=== PATIENT | female | born 1955 | race Caucasian/White ===

== ENCOUNTER 2019-11-10 16:18 | Inpatient (IN) | payer MEDICARE ==
[~2019-11-10] VITALS: Ht 167.6 cm; Wt 53.5 kg
--- NOTE | 2019-11-10 17:18 | NUR ---
PT DIFFICULT STICK AND VERY DRY MUCOUS MEMBRANES. PT HAS NOT BEEN SEE BY MD. PROVIDED WATER. TECH AT BEDSIDE WITH ULTRASOUND TO ATTEMPT TO ESTABLISH IV AND DRAW BLOOD.
[2019-11-10 17:49] LABS: BASOPHILS # (AUTO) 0.03 x10^3/uL (0-0.1); BASOPHILS % (AUTO) 0 % (0-1); EOSINOPHILS # (AUTO) 0.19 x10^3/uL (0-0.4); EOSINOPHILS % (AUTO) 2 % (1-7); LYMPHOCYTES # (AUTO) 2.97 x10^3/uL (1-3.4); LYMPHOCYTES % (AUTO) 27 % (22-44); MD NO; MEAN CORPUSCULAR HEMOGLOBIN 29.7 pg (27.0-34.8); MEAN CORPUSCULAR HGB CONC 33.8 g/dL (32.4-35.8); MEAN CORPUSCULAR VOLUME 87.8 fL (80-100); MEAN PLATELET VOLUME 8.5 fL (7.4-10.4); MONOCYTES % (AUTO) 8 % (2-9); NEUTROPHILS # (AUTO) 6.83 x10^3/uL (1.8-6.8); NEUTROPHILS % (AUTO) 63 % (42-75); PLATELET COUNT 164 x10^3/uL (130-400); RED BLOOD COUNT 5.33 x10^6/uL (3.82-5.3); RED CELL DISTRIBUTION WIDTH 15.3 % (9.6-15.2)
[2019-11-10 17:56] LABS: ALANINE AMINOTRANSFERASE 27 U/L (12-78); ALBUMIN 3.3 g/dL (3.4-5.0); ANION GAP 8 mmol/L (5-15); CALCIUM 8.8 mg/dL (8.5-10.1); CHLORIDE 108 mmol/L (98-107); CREATININE 0.82 mg/dL (0.55-1.02); SALICYLATE LEVEL < 1.7 mg/dL (2.8-20.0)
[2019-11-10 17:57] LABS: ALKALINE PHOSPHATASE 91 U/L (45-117); BILIRUBIN,TOTAL 1.5 mg/dL (0.2-1.0); TOTAL PROTEIN 7.4 g/dL (6.4-8.2)
[2019-11-10] MEDS ORDERED: NALOXONE 0.4 MG/ML, 1ML IVPush ONE (18:00)
[2019-11-10] MEDS ORDERED: NALOXONE 0.4 MG/ML, 1ML ONE (18:01)
--- NOTE | 2019-11-10 18:03 | NUR ---
PT GIVEN NARCAN PER ORDERS. PT YAWNED A FEW TIMES AND RR INCREASED. NOT AGITATED BUT UNABLE TO ANSWER QUESTIONS. JUST WANTS TO KNOW WHEN SHE CAN GO HOME
--- NOTE | 2019-11-10 18:27 | NUR ---
SPOKE WITH CORTNEY [phone]. STATES PT WAS FINE WHEN HE TOOK HER HOME FROM [place] YESTERDAY BUT BY END OF THE NIGHT SHE WAS ACTING DELIERIOUS. A [employer] SHOWED UP THIS AFTERNOON TO DO A WELLNESS CHECK AND ULTIMATELY DECISION MADE TO TRANSPORT PT TO HOSPITAL. STATES HE FOUND SOME BLUE PILLS AFTER SHE LEFT THAT HE DOES NOT KNOW WHAT OR WHERE THEY CAME FROM AND UNSURE IF HIS HAD BEEN TAKING THEM. ID OF PT VERIFIED AND STATES HER FIRST NAME IS [id number], THAT THE PARAMEDICS GOT IT INCORRECT. LAST NAME AND CORRECT PER .
--- NOTE | 2019-11-10 18:56 | NUR ---
Pt bedside report from Libby rn. This rn to asssume care of pt. Pt was incontinent of bowel and changed by libby rn and placed on fresh chux and sheet. Libby rn at bedside for straight cath. Pt still at baseline mentation from admit to ed per rn report.
[2019-11-10 19:30] LABS: AMPHETAMINE SCREEN, URINE Negative (Negative); BARBITURATE SCREEN, URINE Negative (Negative); BENZODIAZEPINE SCREEN, URINE Positive (Negative); CANNABINOID SCREEN, URINE Negative (Negative); COCAINE SCREEN, URINE Negative (Negative); METHADONE SCREEN, URINE Positive (Negative); OPIATE SCREEN, URINE Positive (Negative)
--- NOTE | 2019-11-10 19:50 | NUR ---
Pt resting comfortably on gurney. Pt easily roused, but not able to answer any of orientation questions. All advertising copy writer and strengths still equal bilateral. Pt utilizing grunting for signs of discomfort. Awaiting adm order.
--- NOTE | 2019-11-10 19:55 | NUR ---
Md informed of pt condition and lack of improving mental status. Md states to have pt tbadm. No new orders at this time.
[2019-11-10] MEDS ORDERED: POLYETHYLENE GLYCOL 17 GM PACKET PO PRN (20:30)
[2019-11-10] MEDS ORDERED: hydrALAzine 20 MG/ML, 1ML IVPush PRN (20:30)
[2019-11-10] MEDS ORDERED: BISACODYL 10 MG SUPP PR PRN (20:30)
[2019-11-10] MEDS ORDERED: ONDANSETRON 2MG/ML, 2ML IVPush PRN (20:30)
--- NOTE | 2019-11-10 21:00 | NUR ---
Pt to ct and then to be tx upstairs.
[2019-11-10 23:05] VITALS: BP 164/88
[2019-11-11 00:02] LABS: MICROSCOPIC NOT IND
[2019-11-11 00:12] LABS: CULTURE INDICATED? NO
[2019-11-11] MEDS: SODIUM CHLORIDE 0.9% 1,000 ML IV SCH ×2 (00:20→09:21)
[2019-11-11 01:25] VITALS: BP 152/80
[2019-11-11 09:03] LABS: BASOPHILS # (AUTO) 0.02 x10^3/uL (0-0.1); BASOPHILS % (AUTO) 0 % (0-1); EOSINOPHILS # (AUTO) 0.06 x10^3/uL (0-0.4); EOSINOPHILS % (AUTO) 1 % (1-7); LYMPHOCYTES # (AUTO) 3.04 x10^3/uL (1-3.4); LYMPHOCYTES % (AUTO) 28 % (22-44); MD NO; MEAN CORPUSCULAR HEMOGLOBIN 29.3 pg (27.0-34.8); MEAN CORPUSCULAR HGB CONC 33.4 g/dL (32.4-35.8); MEAN CORPUSCULAR VOLUME 87.9 fL (80-100); MEAN PLATELET VOLUME 8.2 fL (7.4-10.4); MONOCYTES # (AUTO) 0.82 x10^3/uL (0.2-0.8); MONOCYTES % (AUTO) 8 % (2-9); NEUTROPHILS # (AUTO) 6.91 x10^3/uL (1.8-6.8); NEUTROPHILS % (AUTO) 64 % (42-75); PLATELET COUNT 164 x10^3/uL (130-400); RED BLOOD COUNT 5.63 x10^6/uL (3.82-5.3); RED CELL DISTRIBUTION WIDTH 15.3 % (9.6-15.2)
[2019-11-11 09:07] VITALS: BP 156/94
[2019-11-11 09:08] LABS: ANION GAP 7 mmol/L (5-15); CALCIUM 8.7 mg/dL (8.5-10.1); CHLORIDE 111 mmol/L (98-107); CREATININE 0.67 mg/dL (0.55-1.02)
[2019-11-11] MEDS: SENNA/DOCUSATE TABLET PO SCH (09:21)
[2019-11-11] MEDS ORDERED: LOSA100T14 PO (10:31)
[2019-11-11] MEDS ORDERED: AMLO5TAB10 PO (10:31)
[2019-11-11] MEDS: LOSARTAN 100 MG TAB PO SCH (11:14)
[2019-11-11] MEDS: AMLODIPINE 5 MG TABLET PO SCH (11:14)
[2019-11-11 13:58] VITALS: BP 158/88
[2019-11-11] MEDS: METHADONE 10 MG TABLET PO SCH ×2 (15:49→20:21)
[2019-11-11] MEDS ORDERED: POTASSIUM CHLORIDE 40 MEQ in SODIUM CHLORIDE 0.9% 500 ML IV ONE (18:00)
[2019-11-11] MEDS ORDERED: hydrALAzine 20 MG/ML, 1ML IV PRN (18:00)
[2019-11-11] MEDS ORDERED: SODIUM CHLORIDE 0.9% 1,000 ML IV SCH (20:05)
[2019-11-11 20:14] VITALS: BP 163/87
[2019-11-12 00:13] VITALS: BP 167/91
[2019-11-12 07:10] LABS: ALBUMIN 2.8 g/dL (3.4-5.0); ANION GAP 8 mmol/L (5-15); CALCIUM 7.9 mg/dL (8.5-10.1); CHLORIDE 110 mmol/L (98-107)
[2019-11-12 07:15] LABS: ALANINE AMINOTRANSFERASE 28 U/L (12-78); ALKALINE PHOSPHATASE 74 U/L (45-117); BILIRUBIN,TOTAL 1.5 mg/dL (0.2-1.0); CREATININE 0.59 mg/dL (0.55-1.02); TOTAL PROTEIN 6.4 g/dL (6.4-8.2)
[2019-11-12 09:29] VITALS: BP 162/89
[2019-11-12] MEDS: SENNA/DOCUSATE TABLET PO SCH (09:31)
[2019-11-12] MEDS: METHADONE 10 MG TABLET PO SCH ×3 (09:31→20:08)
[2019-11-12] MEDS: AMLODIPINE 5 MG TABLET PO SCH ×2 (09:31→18:51)
[2019-11-12] MEDS: LOSARTAN 100 MG TAB PO SCH (09:31)
[2019-11-12 15:16] VITALS: BP 165/98
[2019-11-12 18:45] VITALS: BP 167/95
[2019-11-12] MEDS: PROPRANOLOL 10 MG TABLET PO SCH ×2 (18:52→22:07)
[2019-11-13 00:34] VITALS: BP 155/87
[2019-11-13] MEDS: PROPRANOLOL 10 MG TABLET PO SCH ×3 (05:25→21:47)
[2019-11-13 08:13] VITALS: BP 160/91
[2019-11-13] MEDS: METHADONE 10 MG TABLET PO SCH ×3 (09:08→21:47)
[2019-11-13] MEDS: LOSARTAN 100 MG TAB PO SCH (09:08)
[2019-11-13] MEDS: SENNA/DOCUSATE TABLET PO SCH (09:09)
[2019-11-13] MEDS: AMLODIPINE 5 MG TABLET PO SCH ×2 (09:09→21:47)
[2019-11-13 13:09] VITALS: BP 138/91
[2019-11-13 15:01] VITALS: BP 153/80
[2019-11-13] MEDS ORDERED: MAGNESIUM SULFATE/D5W 100 ML IV ONE (18:30)
[2019-11-13] MEDS ORDERED: POTASSIUM PHOSPHATE 44 MEQ in SODIUM CHLORIDE 0.9% 500 ML IV ONE (20:00)
[2019-11-13 20:02] VITALS: BP_SYST 162; BP_SYST 171; BP_DIAS 73; BP_DIAS 74; BP_DIAS 90
[2019-11-14 02:15] VITALS: BP 152/90
[2019-11-14] MEDS: PROPRANOLOL 10 MG TABLET PO SCH (06:01)
[2019-11-14 06:09] LABS: BASOPHILS # (AUTO) 0.02 x10^3/uL (0-0.1); BASOPHILS % (AUTO) 0 % (0-1); EOSINOPHILS # (AUTO) 0.14 x10^3/uL (0-0.4); EOSINOPHILS % (AUTO) 2 % (1-7); LYMPHOCYTES # (AUTO) 2.59 x10^3/uL (1-3.4); LYMPHOCYTES % (AUTO) 37 % (22-44); MD NO; MEAN CORPUSCULAR HEMOGLOBIN 29.6 pg (27.0-34.8); MEAN CORPUSCULAR HGB CONC 34.1 g/dL (32.4-35.8); MEAN PLATELET VOLUME 8.6 fL (7.4-10.4); MONOCYTES # (AUTO) 0.72 x10^3/uL (0.2-0.8); MONOCYTES % (AUTO) 10 % (2-9); NEUTROPHILS # (AUTO) 3.51 x10^3/uL (1.8-6.8); NEUTROPHILS % (AUTO) 50 % (42-75); PLATELET COUNT 169 x10^3/uL (130-400); RED BLOOD COUNT 5.02 x10^6/uL (3.82-5.3); RED CELL DISTRIBUTION WIDTH 15.4 % (9.6-15.2)
[2019-11-14 06:21] LABS: ALANINE AMINOTRANSFERASE 24 U/L (12-78); ALBUMIN 2.7 g/dL (3.4-5.0); ANION GAP 8 mmol/L (5-15); CALCIUM 8.1 mg/dL (8.5-10.1); CHLORIDE 112 mmol/L (98-107); CREATININE 0.69 mg/dL (0.55-1.02)
[2019-11-14 06:23] LABS: ALKALINE PHOSPHATASE 88 U/L (45-117); BILIRUBIN,TOTAL 1.1 mg/dL (0.2-1.0); TOTAL PROTEIN 6.4 g/dL (6.4-8.2)
[2019-11-14 06:48] VITALS: BP 162/82
[2019-11-14] MEDS: LOSARTAN 100 MG TAB PO SCH (09:18)
[2019-11-14] MEDS: METHADONE 10 MG TABLET PO SCH (09:18)
[2019-11-14] MEDS: SENNA/DOCUSATE TABLET PO SCH (09:18)
[2019-11-14] MEDS: AMLODIPINE 5 MG TABLET PO SCH (11:34)
[2019-11-14 11:35] VITALS: BP 155/89
[2019-11-14 12:43] VITALS: BP 134/77
== END 2019-11-14 15:00 | disposition left against medical advice (07) | DRG 92 ==
LOC: ED 17:08 → EDIP 20:05 → 4WST 21:31
PROVIDERS: ADMIT Internal Medicine; ATTEND Family Medicine
DX: G92 Toxic encephalopathy (principal); S22.42XA Multiple fractures of ribs, left side, initial encounter for closed fracture; I16.0 Hypertensive urgency; E83.39 Other disorders of phosphorus metabolism; E87.6 Hypokalemia; Z78.1 Physical restraint status; Z88.0 Allergy status to penicillin; R33.9 Retention of urine, unspecified; Y92.238 Other place in hospital as the place of occurrence of the external cause; Z53.29 Procedure and treatment not carried out because of patient's decision for other reasons; W18.39XA Other fall on same level, initial encounter; Y93.89 Activity, other specified; Y92.098 Other place in other non-institutional residence as the place of occurrence of the external cause; Y99.8 Other external cause status; T42.4X5A Adverse effect of benzodiazepines, initial encounter
CPT/HCPCS: 36415; 70450; 80048; 80053; 80307; 81003; 82140; 83735; 84100; 84443; 85025; 93005; G0378; J2310; J3480; J7030; J7040

== ENCOUNTER 2019-11-15 10:10 | Inpatient (IN) | payer MEDICARE ==
[~2019-11-15] VITALS: Ht 167.6 cm; Wt 53.9 kg
[~2019-11-15 10:10] MED LIST: AMLO5TAB10 PO; LOSA100T14 PO
--- NOTE | 2019-11-15 10:37 | NUR ---
[place]. REPORT RECEIVED FROM EMS. ALTERED MENTAL STATUS PER PT'S AND PT HAD GLF AROUND 9AM TODAY. PT HAS SMALL ABLATION ON RIGHT FACE(UNDER RIGHT ETE). PT'S FOUND UNKNOWN PILLS AFTER PT HAD GLF. PT'S AOX2 HERE. UNKNOWN PILLS ARE IBUPROFEN 800MG PER PHARMACY. RESPS EVEN AND UNLABORED. BP/SPO2 MONITORS IN PLACE. CALL LIGHT WITHIN REACH. EDMD AT BEDSIDE TO EVALUATE AT THIS TIME.
--- NOTE | 2019-11-15 10:39 | NUR ---
PT REFUSED EKG. EDMD NOTIFIED.
[2019-11-15] MEDS ORDERED: HALOPERIDOL 5 MG/ML ONE (10:41)
--- NOTE | 2019-11-15 10:47 | NUR ---
PT MEDICATED PER EMAR. PT TOLERATED WELL. LAB AT BEDSIDE.
--- NOTE | 2019-11-15 10:50 | NUR ---
PER EDMD, PT NEEDS STRAIGHT CATH AFTER MED GIVEN.
--- NOTE | 2019-11-15 10:59 | NUR ---
PT REFUSED STRAIGHT CATH AT THIS TIME. PT STATES "I NEED MY AND HE IS COMING."
[2019-11-15] MEDS ORDERED: HALOPERIDOL 5 MG/ML IM PRN (11:00)
--- NOTE | 2019-11-15 11:02 | NUR ---
PT TO CT AT THIS TIME.
--- NOTE | 2019-11-15 11:14 | NUR ---
PT BACK TO ROOM FROM CT AT THIS TIME.
--- NOTE | 2019-11-15 11:43 | NUR ---
PT IS AGITATED AND YELLING AT STAFF. PT IS AFFRESSIVE AND UNABLE TO STAY IN [facility] [place]. HOUSE PRINCIPAL NOTIFIED. PT WILL MOVE TO ROOM 41 D/T PT AND STAFF SAFETY.
[2019-11-15 11:51] LABS: BASOPHILS # (AUTO) 0.04 x10^3/uL (0-0.1); BASOPHILS % (AUTO) 1 % (0-1); EOSINOPHILS # (AUTO) 0.14 x10^3/uL (0-0.4); EOSINOPHILS % (AUTO) 2 % (1-7); LYMPHOCYTES # (AUTO) 2.01 x10^3/uL (1-3.4); LYMPHOCYTES % (AUTO) 28 % (22-44); MD NO; MEAN CORPUSCULAR HEMOGLOBIN 29.5 pg (27.0-34.8); MEAN CORPUSCULAR HGB CONC 33.6 g/dL (32.4-35.8); MEAN CORPUSCULAR VOLUME 87.9 fL (80-100); MEAN PLATELET VOLUME 8.4 fL (7.4-10.4); MONOCYTES # (AUTO) 0.47 x10^3/uL (0.2-0.8); MONOCYTES % (AUTO) 7 % (2-9); NEUTROPHILS # (AUTO) 4.49 x10^3/uL (1.8-6.8); NEUTROPHILS % (AUTO) 63 % (42-75); PLATELET COUNT 204 x10^3/uL (130-400); RED BLOOD COUNT 4.93 x10^6/uL (3.82-5.3); RED CELL DISTRIBUTION WIDTH 15.7 % (9.6-15.2)
[2019-11-15 12:01] LABS: ANION GAP 6 mmol/L (5-15); CALCIUM 8.6 mg/dL (8.5-10.1); CHLORIDE 114 mmol/L (98-107)
[2019-11-15 12:03] LABS: ALANINE AMINOTRANSFERASE 26 U/L (12-78); ALKALINE PHOSPHATASE 79 U/L (45-117); BILIRUBIN,TOTAL 1.2 mg/dL (0.2-1.0); CREATININE 0.75 mg/dL (0.55-1.02); TOTAL PROTEIN 6.3 g/dL (6.4-8.2)
--- NOTE | 2019-11-15 12:04 | NUR ---
REPORT FROM PAUL
[2019-11-15] MEDS ORDERED: OXYcodone IR 5MG TABLET ONE (12:20)
[2019-11-15] MEDS ORDERED: OXYcodone IR 5MG TABLET PO ONE (12:30)
--- NOTE | 2019-11-15 13:47 | NUR ---
REPORT TO MAYRA. PT READY FOR TRANSFER. US IV PLACE. PT COOPERATIVE. MANY BRUISES AND SKIN TEARS NOTED ON BOTH ARMS
[2019-11-15] MEDS ORDERED: SODIUM CHLORIDE 0.9% 1,000 ML IV SCH (14:13)
[2019-11-15] MEDS ORDERED: POTASSIUM CHLORIDE 40 MEQ in SODIUM CHLORIDE 0.9% 500 ML IV ONE (14:30)
[2019-11-15] MEDS ORDERED: hydrALAzine 20 MG/ML, 1ML IVPush PRN (14:30)
[2019-11-15] MEDS ORDERED: LABETALOL 5MG/ML, 20ML IVPush PRN (14:30)
[2019-11-15] MEDS ORDERED: ONDANSETRON 2MG/ML, 2ML IVPush PRN (14:30)
[2019-11-15] MEDS: ENOXAPARIN 40 MG/0.4 ML SQ SCH (14:33)
[2019-11-15] MEDS: POTASSIUM CHLORIDE 10 MEQ in D5%-0.45% NACL 1,000 ML IV SCH (14:58)
[2019-11-15 16:11] VITALS: BP 137/78
[2019-11-15 16:14] LABS: MICROSCOPIC NOT IND
[2019-11-15 16:25] LABS: AMPHETAMINE SCREEN, URINE Negative (Negative); BARBITURATE SCREEN, URINE Negative (Negative); BENZODIAZEPINE SCREEN, URINE Positive (Negative); CANNABINOID SCREEN, URINE Negative (Negative); COCAINE SCREEN, URINE Negative (Negative); METHADONE SCREEN, URINE Positive (Negative); OPIATE SCREEN, URINE Negative (Negative)
[2019-11-15 16:36] LABS: CULTURE INDICATED? NO
[2019-11-15 19:24] VITALS: BP 136/79
[2019-11-16 01:42] VITALS: BP 166/73
[2019-11-16 07:40] VITALS: BP 177/91
[2019-11-16 08:28] LABS: BASOPHILS # (AUTO) 0.02 x10^3/uL (0-0.1); BASOPHILS % (AUTO) 0 % (0-1); EOSINOPHILS # (AUTO) 0.07 x10^3/uL (0-0.4); EOSINOPHILS % (AUTO) 1 % (1-7); LYMPHOCYTES % (AUTO) 30 % (22-44); MD NO; MEAN CORPUSCULAR HEMOGLOBIN 30.1 pg (27.0-34.8); MEAN CORPUSCULAR HGB CONC 34.1 g/dL (32.4-35.8); MEAN CORPUSCULAR VOLUME 88.3 fL (80-100); MEAN PLATELET VOLUME 8.2 fL (7.4-10.4); MONOCYTES # (AUTO) 0.37 x10^3/uL (0.2-0.8); MONOCYTES % (AUTO) 6 % (2-9); NEUTROPHILS % (AUTO) 63 % (42-75); PLATELET COUNT 211 x10^3/uL (130-400); RED BLOOD COUNT 5.03 x10^6/uL (3.82-5.3); RED CELL DISTRIBUTION WIDTH 15.4 % (9.6-15.2)
[2019-11-16 08:41] LABS: ALBUMIN 3.2 g/dL (3.4-5.0); ANION GAP 8 mmol/L (5-15); CALCIUM 8.5 mg/dL (8.5-10.1); CHLORIDE 114 mmol/L (98-107)
[2019-11-16 08:45] LABS: ALANINE AMINOTRANSFERASE 30 U/L (12-78); ALKALINE PHOSPHATASE 86 U/L (45-117); BILIRUBIN,TOTAL 1.8 mg/dL (0.2-1.0); CREATININE 0.67 mg/dL (0.55-1.02); TOTAL PROTEIN 7.1 g/dL (6.4-8.2)
[2019-11-16] MEDS ORDERED: AMLODIPINE 5 MG TABLET PO SCH (09:00)
[2019-11-16] MEDS: POTASSIUM CHLORIDE 10 MEQ in D5%-0.45% NACL 1,000 ML IV SCH ×2 (09:00→23:21)
[2019-11-16] MEDS: LOSARTAN 100 MG TAB PO SCH (11:15)
[2019-11-16] MEDS: AMLODIPINE 10 MG TAB PO SCH (11:16)
[2019-11-16 13:27] VITALS: BP 161/92
[2019-11-16] MEDS: ENOXAPARIN 40 MG/0.4 ML SQ SCH (16:55)
[2019-11-16] MEDS: ACETAMINOPHEN 325 MG TABLET PO PRN (16:55)
[2019-11-16] MEDS ORDERED: LORazepam 0.5MG TABLET ONE (17:29)
[2019-11-16] MEDS: LORazepam 0.5MG TABLET PO PRN (17:31)
[2019-11-16 19:45] VITALS: BP 155/88
[2019-11-17 00:31] VITALS: BP 160/82
[2019-11-17] MEDS: LORazepam 0.5MG TABLET PO PRN ×2 (02:08→10:40)
[2019-11-17 09:46] VITALS: BP 170/93
[2019-11-17] MEDS: HYDROCHLOROTHIAZIDE 25 MG TABLET PO SCH (10:39)
[2019-11-17] MEDS: LOSARTAN 100 MG TAB PO SCH (10:39)
[2019-11-17] MEDS: AMLODIPINE 10 MG TAB PO SCH (10:39)
[2019-11-17] MEDS: ENOXAPARIN 40 MG/0.4 ML SQ SCH (15:09)
[2019-11-17 18:38] VITALS: BP 155/92
[2019-11-17] MEDS: ACETAMINOPHEN 325 MG TABLET PO PRN (21:57)
[2019-11-18 01:36] VITALS: BP 149/83
[2019-11-18 09:06] VITALS: BP 152/92
[2019-11-18] MEDS: AMLODIPINE 10 MG TAB PO SCH (09:09)
[2019-11-18] MEDS: HYDROCHLOROTHIAZIDE 25 MG TABLET PO SCH (09:09)
[2019-11-18] MEDS: CARVEDILOL 12.5 MG TABLET PO SCH ×2 (09:09→18:26)
[2019-11-18] MEDS: LOSARTAN 100 MG TAB PO SCH (09:09)
[2019-11-18] MEDS ORDERED: LORazepam 2 MG/ML, 1ML IVPush ONE (14:30)
[2019-11-18 14:33] VITALS: BP 149/89
[2019-11-18] MEDS: ENOXAPARIN 40 MG/0.4 ML SQ SCH (14:54)
[2019-11-18 15:27] VITALS: BP 159/77
[2019-11-18 18:38] VITALS: BP 119/75
[2019-11-19 00:28] VITALS: BP 148/88
[2019-11-19] MEDS: HALOPERIDOL 5 MG/ML IM PRN ×2 (05:22→13:46)
[2019-11-19] MEDS: ACETAMINOPHEN 325 MG TABLET PO PRN ×3 (06:02→20:34)
[2019-11-19 06:04] VITALS: BP 147/87
[2019-11-19] MEDS: LOSARTAN 100 MG TAB PO SCH (08:55)
[2019-11-19] MEDS: AMLODIPINE 10 MG TAB PO SCH (08:56)
[2019-11-19] MEDS: HYDROCHLOROTHIAZIDE 25 MG TABLET PO SCH (08:56)
[2019-11-19] MEDS ORDERED: MAGNESIUM CITRATE 300ML ORAL SOL PO PRN (13:30)
[2019-11-19] MEDS ORDERED: BISACODYL 10 MG SUPP PR PRN (13:30)
[2019-11-19] MEDS ORDERED: POLYETHYLENE GLYCOL 17 GM PACKET PO PRN (13:30)
[2019-11-19] MEDS: NICOTINE 21 MG/24 HR PATCH.TD24 TD SCH (13:46)
[2019-11-19] MEDS: ENOXAPARIN 40 MG/0.4 ML SQ SCH (13:46)
[2019-11-19 14:15] VITALS: BP 136/79
[2019-11-19 19:15] VITALS: BP 133/77
[2019-11-19] MEDS: CARVEDILOL 12.5 MG TABLET PO SCH (20:34)
[2019-11-19] MEDS: DIVALPROEX 125 MG TABLET.DR PO SCH (20:34)
[2019-11-20 01:11] VITALS: BP 108/68
[2019-11-20] MEDS: ACETAMINOPHEN 325 MG TABLET PO PRN ×4 (02:23→20:30)
[2019-11-20] MEDS: CARVEDILOL 12.5 MG TABLET PO SCH ×2 (06:00→17:27)
[2019-11-20] MEDS: LOSARTAN 100 MG TAB PO SCH (08:28)
[2019-11-20] MEDS: DIVALPROEX 125 MG TABLET.DR PO SCH ×2 (08:29→20:09)
[2019-11-20] MEDS: HYDROCHLOROTHIAZIDE 25 MG TABLET PO SCH (08:29)
[2019-11-20] MEDS: AMLODIPINE 5 MG TABLET PO SCH (09:00)
[2019-11-20] MEDS: ENOXAPARIN 40 MG/0.4 ML SQ SCH (13:53)
[2019-11-20] MEDS: NICOTINE 21 MG/24 HR PATCH.TD24 TD SCH (13:56)
[2019-11-20 13:58] VITALS: BP 154/92
[2019-11-20] MEDS ORDERED: LIDOCAINE-MPF 1%, 5ML ONE (15:11)
[2019-11-20 15:38] LABS: INTERNATIONAL NORMALIZED RATIO 1.1 (0.93-1.1); PROTHROMBIN TIME 11.7 Seconds (9.6-11.5)
[2019-11-20 19:45] VITALS: BP 111/73
[2019-11-21 02:22] VITALS: BP 121/81
[2019-11-21] MEDS ORDERED: MELATONIN 3 MG TABLET ONE (02:26)
[2019-11-21] MEDS ORDERED: MELATONIN 3 MG TABLET PO ONE (02:30)
[2019-11-21] MEDS: ACETAMINOPHEN 325 MG TABLET PO PRN ×3 (03:12→20:34)
[2019-11-21 03:50] LABS: BASOPHILS # (AUTO) 0.02 x10^3/uL (0-0.1); BASOPHILS % (AUTO) 0 % (0-1); EOSINOPHILS % (AUTO) 2 % (1-7); LYMPHOCYTES % (AUTO) 24 % (22-44); MD NO; MEAN CORPUSCULAR HEMOGLOBIN 29.7 pg (27.0-34.8); MEAN CORPUSCULAR HGB CONC 33.4 g/dL (32.4-35.8); MEAN CORPUSCULAR VOLUME 88.9 fL (80-100); MONOCYTES # (AUTO) 0.57 x10^3/uL (0.2-0.8); MONOCYTES % (AUTO) 6 % (2-9); NEUTROPHILS # (AUTO) 6.47 x10^3/uL (1.8-6.8); NEUTROPHILS % (AUTO) 68 % (42-75); PLATELET COUNT 211 x10^3/uL (130-400); RED BLOOD COUNT 4.72 x10^6/uL (3.82-5.3); RED CELL DISTRIBUTION WIDTH 15.4 % (9.6-15.2)
[2019-11-21 04:03] LABS: ALANINE AMINOTRANSFERASE 27 U/L (12-78); ANION GAP 7 mmol/L (5-15); CALCIUM 8.6 mg/dL (8.5-10.1); CHLORIDE 104 mmol/L (98-107); CREATININE 0.83 mg/dL (0.55-1.02)
[2019-11-21 04:05] LABS: ALKALINE PHOSPHATASE 129 U/L (45-117); BILIRUBIN,TOTAL 0.9 mg/dL (0.2-1.0); TOTAL PROTEIN 6.6 g/dL (6.4-8.2)
[2019-11-21] MEDS: CARVEDILOL 12.5 MG TABLET PO SCH ×2 (05:57→16:20)
[2019-11-21 06:53] VITALS: BP 144/89
[2019-11-21] MEDS: POTASSIUM CHLORIDE 20 MEQ TAB.ER.PRT PO SCH ×2 (09:43→16:20)
[2019-11-21] MEDS: AMLODIPINE 5 MG TABLET PO SCH (09:43)
[2019-11-21] MEDS: DIVALPROEX 125 MG TABLET.DR PO SCH ×2 (09:43→20:33)
[2019-11-21] MEDS: LOSARTAN 100 MG TAB PO SCH (09:43)
[2019-11-21] MEDS: HYDROCHLOROTHIAZIDE 25 MG TABLET PO SCH (09:44)
[2019-11-21] MEDS: NICOTINE 21 MG/24 HR PATCH.TD24 TD SCH (12:42)
[2019-11-21 14:33] VITALS: BP 122/72
[2019-11-21] MEDS ORDERED: LIDODERM 5% PATCH TD SCH (16:00)
[2019-11-21] MEDS ORDERED: TRAZODONE 50MG TABLET PO PRN (17:30)
[2019-11-21 18:45] VITALS: BP 126/82
[2019-11-22 00:42] VITALS: BP 136/81
[2019-11-22 03:27] LABS: ALANINE AMINOTRANSFERASE 27 U/L (12-78); ANION GAP 7 mmol/L (5-15); CALCIUM 8.6 mg/dL (8.5-10.1); CHLORIDE 107 mmol/L (98-107); CREATININE 0.91 mg/dL (0.55-1.02)
[2019-11-22 03:29] LABS: ALKALINE PHOSPHATASE 150 U/L (45-117); BILIRUBIN,TOTAL 0.8 mg/dL (0.2-1.0); TOTAL PROTEIN 6.8 g/dL (6.4-8.2)
[2019-11-22] MEDS ORDERED: LIDODERM REMOVE PATCH NOTE XX SCH (04:00)
[2019-11-22] MEDS: ACETAMINOPHEN 325 MG TABLET PO PRN (04:23)
[2019-11-22 05:55] VITALS: BP 145/90
[2019-11-22] MEDS: CARVEDILOL 12.5 MG TABLET PO SCH (05:55)
[2019-11-22 06:35] VITALS: BP 137/79
== END 2019-11-22 08:34 | disposition left against medical advice (07) | DRG 91 ==
LOC: ED 12:46 → EDIP 13:27 → 3N 13:53
PROVIDERS: ADMIT Family Medicine; ATTEND Family Medicine
PROC: 02HV33Z Insertion of Infusion Device into Superior Vena Cava, Percutaneous Approach (ICD-10-PCS; principal; 2019-11-16)
PROC: B548ZZA Ultrasonography of Superior Vena Cava, Guidance (ICD-10-PCS; 2019-11-16)
DX: G92 Toxic encephalopathy (principal); E43 Unspecified severe protein-calorie malnutrition; Z68.1 Body mass index [BMI] 19.9 or less, adult; E87.6 Hypokalemia; I10 Essential (primary) hypertension; S09.8XXA Other specified injuries of head, initial encounter; R94.31 Abnormal electrocardiogram [ECG] [EKG]; I16.0 Hypertensive urgency; K59.00 Constipation, unspecified; W06.XXXA Fall from bed, initial encounter; Y92.003 Bedroom of unspecified non-institutional (private) residence as the place of occurrence of the external cause; Z87.891 Personal history of nicotine dependence; Y93.89 Activity, other specified; Y92.092 Bedroom in other non-institutional residence as the place of occurrence of the external cause; Y99.8 Other external cause status; Z79.899 Other long term (current) drug therapy; Z53.29 Procedure and treatment not carried out because of patient's decision for other reasons
CPT/HCPCS: 36415; 36573; 70450; 70551; 80053; 80307; 81003; 82140; 82607; 84443; 85025; 85610; 86592; 87070; 87205; 93005; 95819; 96372; 99285; G0378; J1650; J3480; C1751; J1630; J2060; J7040